=== PATIENT | male | born 1995 | race Caucasian/White ===

== ENCOUNTER 2017-03-06 21:19 | Inpatient (IN) | payer OTHER ==
[~2017-03-06] VITALS: Ht 180.3 cm; Wt 113.0 kg
[2017-03-06 22:37] LABS: BASOPHIL % 0.3 % (0-2)
[2017-03-06 22:46] LABS: CALCIUM 8.7 mg/dL (8.5-10.1); CARBON DIOXIDE 29.6 mmol/L (21-32); CHLORIDE SERUM 105 mmol/L (98-107); GFR1 > 60 mL/min; GLUCOSE SERUM 113 mg/dL (74-106); POTASSIUM SERUM 3.6 mmol/L (3.5-5.1); SODIUM SERUM 143 mmol/L (136-145)
[2017-03-06 22:55] LABS: PLATELET COUNT 401 x10^3mcL (130-400); RED CELL DISTRIBUTION WIDTH 14.7 % (11.5-14.5)
[2017-03-06 22:56] LABS: T3 TOTAL 1.24 ng/mL
[2017-03-06 23:00] LABS: microscopic required? YES; urine erythrocyte TRACE (NEGATIVE)
[2017-03-06 23:02] LABS: ALBUMIN 3.2 g/dL (3.4-5.0); ALKALINE PHOSPHATASE 70 U/L (46-116); ALT/SGPT 22 U/L (16-63); AST/SGOT 21 U/L (15-37); BILIRUBIN TOTAL 0.19 mg/dL (0.20-1.00); C REACTIVE PROTEIN 2.3 mg/dL (<=0.9); TOTAL PROTEIN, SERUM 7.3 g/dL (6.4-8.2)
[2017-03-06 23:13] LABS: FREE T4 0.96 ng/dL (0.76-1.46); FREE THYROXINE INDEX 2.5 ug/dL (1.4-4.5); T4(THYROXINE) 7.1 ug/dL (4.7-13.3)
[2017-03-06 23:22] LABS: CK-MB < 0.5 ng/mL (0-3.6); CREATINE KINASE 57 U/L (39-308)
[2017-03-06 23:42] LABS: ERYTHROCYTE SED RATE 29 mm/hr (0-15)
[2017-03-07] VITALS (7 sets, daily range): BP systolic 100–124; BP diastolic 44–71
[2017-03-07] MEDS ORDERED: BACTRIM1 TAB PO (00:30)
[2017-03-07] MEDS ORDERED: ADV200 PO (00:41)
[2017-03-07 06:19] LABS: CALCIUM 7.7 mg/dL (8.5-10.1); CARBON DIOXIDE 24.5 mmol/L (21-32); CHLORIDE SERUM 108 mmol/L (98-107); CREATININE SERUM 0.8 mg/dL (0.7-1.3); GFR1 > 60 mL/min; GLUCOSE SERUM 107 mg/dL (74-106); POTASSIUM SERUM 3.7 mmol/L (3.5-5.1); SODIUM SERUM 142 mmol/L (136-145)
[2017-03-08] VITALS (8 sets, daily range): BP systolic 109–156; BP diastolic 51–81; Ht 180.3 cm; Wt 113.0 kg
[2017-03-08 06:01] LABS: BASOPHIL % 0.2 % (0-2); PLATELET COUNT 290 x10^3mcL (130-400)
[2017-03-08 06:33] LABS: CARBON DIOXIDE 26.4 mmol/L (21-32); CHLORIDE SERUM 107 mmol/L (98-107); CREATININE SERUM 0.8 mg/dL (0.7-1.3); GFR1 > 60 mL/min; GLUCOSE SERUM 84 mg/dL (74-106); POTASSIUM SERUM 3.6 mmol/L (3.5-5.1); SODIUM SERUM 140 mmol/L (136-145)
[2017-03-08 06:37] LABS: RED CELL DISTRIBUTION WIDTH 15.2 % (11.5-14.5)
[2017-03-09 06:23] VITALS: BP 109/56
[2017-03-09 06:44] LABS: CALCIUM 8.3 mg/dL (8.5-10.1); CARBON DIOXIDE 26.9 mmol/L (21-32); CHLORIDE SERUM 107 mmol/L (98-107); CREATININE SERUM 0.7 mg/dL (0.7-1.3); GFR1 > 60 mL/min; GLUCOSE SERUM 88 mg/dL (74-106); POTASSIUM SERUM 3.7 mmol/L (3.5-5.1); SODIUM SERUM 142 mmol/L (136-145)
[2017-03-09 08:53] VITALS: BP 120/78
[2017-03-09 10:55] LABS: BASOPHIL % 0.3 % (0-2); PLATELET COUNT 335 x10^3mcL (130-400)
[2017-03-09 10:57] LABS: RED CELL DISTRIBUTION WIDTH 14.9 % (11.5-14.5)
[2017-03-09 14:13] VITALS: BP 114/67
[2017-03-09 17:10] VITALS: BP 93/52
[2017-03-09 17:12] VITALS: BP 122/66
[2017-03-09 21:09] VITALS: BP 109/63
[2017-03-10 01:11] VITALS: BP 109/63
[2017-03-10 05:58] VITALS: BP 108/61
[2017-03-10 06:51] LABS: BASOPHIL % 0.5 % (0-2); PLATELET COUNT 371 x10^3mcL (130-400); RED CELL DISTRIBUTION WIDTH 14.9 % (11.5-14.5)
[2017-03-10 07:07] LABS: CARBON DIOXIDE 26.4 mmol/L (21-32); CHLORIDE SERUM 104 mmol/L (98-107); GLUCOSE SERUM 86 mg/dL (74-106); POTASSIUM SERUM 3.6 mmol/L (3.5-5.1); SODIUM SERUM 140 mmol/L (136-145)
[2017-03-10 07:08] LABS: CALCIUM 8.6 mg/dL (8.5-10.1); CREATININE SERUM 0.7 mg/dL (0.7-1.3); GFR1 > 60 mL/min
[2017-03-10 08:32] VITALS: BP 117/64
[2017-03-10 12:11] VITALS: BP 117/61
[2017-03-10 13:43] VITALS: BP 117/61
== END 2017-03-10 17:31 | disposition other institution (70) | DRG 872 ==
LOC: ED 21:19 → DU 23:51
PROVIDERS: Radiology Diagnostic Radiology; Specialist; ADMIT Internal Medicine
PROC: 0TP5X0Z Removal of Drainage Device from Kidney, External Approach (ICD-10-PCS; principal; 2017-03-08 11:45)
DX: A41.9 Sepsis, unspecified organism (principal); N39.0 Urinary tract infection, site not specified; N20.2 Calculus of kidney with calculus of ureter; E86.0 Dehydration; Z68.34 Body mass index [BMI] 34.0-34.9, adult; Z87.891 Personal history of nicotine dependence; Z93.6 Other artificial openings of urinary tract status; Z88.8 Allergy status to other drugs, medicaments and biological substances; R65.20 Severe sepsis without septic shock; R09.02 Hypoxemia; J44.9 Chronic obstructive pulmonary disease, unspecified
CPT/HCPCS: 36600; 83880; 84439; C1893; J1170; J1885; J2001; J2405; J2543; J3490; J7030; J7040; Q0092; Q9967